=== PATIENT | female | born 1980 | race Caucasian/White ===

== ENCOUNTER 2022-07-30 08:19 | Emergency (ER) | payer BC ==
[~2022-07-30] VITALS: Ht 172.7 cm; Wt 86.2 kg
[~2022-07-30 08:19] MED LIST: SUMA25TA PO
[2022-07-30 08:22] VITALS: BP_SYST 147
--- NOTE | 2022-07-30 08:24 | NUR ---
Patient to ER bed 2 to gown for evaluation. Side rails up. Report given to Jenna BRIGGS.
--- NOTE | 2022-07-30 08:24 | NUR ---
Pt came in from home with significant other c/o severe Left Lower abd pain 8/. Pt states she has hx of fibroid tissue and cysts on ovaries. Pt states she is scheduled for hysterectomy this week but was unable to manage the pain on her own. Pt states she took tylenol at 0630. Denies fever/v/d. Pt is A&Ox4, calm and cooperative, VSS. Care to be provided as ordered.
--- NOTE | 2022-07-30 08:26 | NUR ---
ER at bedside examining patient.
[2022-07-30] MEDS ORDERED: HYDROcodone/ACETAMIN 10-325 MG TAB PO ONE (08:45)
[2022-07-30] MEDS ORDERED: IBUPROFEN 800 MG TABLET PO ONE (08:45)
[2022-07-30 09:32] LABS: BASOPHILS % (AUTO) 0.6 % (0.0-2.0); EOSINOPHILS # (AUTO) 0.1 K/uL (0.0-0.4); EOSINOPHILS % (AUTO) 1.8 % (0.0-4.0); HEMATOCRIT 34.1 % (36-48); HEMOGLOBIN 11.5 g/dL (12.0-16.0); LYMPHOCYTES # (AUTO) 1.6 K/uL (1.0-5.5); LYMPHOCYTES % (AUTO) 36.9 % (20.5-51.5); MEAN CORPUSCULAR HEMOGLOBIN 27 pg (27-31); MEAN CORPUSCULAR HGB CONC 34 % (32-36); MEAN CORPUSCULAR VOLUME 80 fL (79.0-98.0); MONOCYTES # (AUTO) 0.2 K/uL (0.0-1.0); MONOCYTES % (AUTO) 5.2 % (1.7-9.3); NEUTROPHILS # (AUTO) 2.5 K/uL (1.8-7.7); NEUTROPHILS % (AUTO) 55.5 % (40.0-70.0); PLATELET COUNT (AUTO) 307 K/uL (130-430); RED BLOOD CELL COUNT(AUTO) 4.26 MIL/uL (4.2-6.2); RED CELL DISTRIBUTION WIDTH 14.9 % (9.0-15.0); WHITE BLOOD COUNT (AUTO) 4.5 K/uL (4.8-10.8)
[2022-07-30 09:43] LABS: CALCIUM 8.4 mg/dL (8.4-11.0); CREATININE 0.72 mg/dL (0.55-1.30)
[2022-07-30 09:48] LABS: ALBUMIN 3.7 g/dL (3.4-4.8); C-REACTIVE PROTEIN QUANT 0.7 mg/dL (0-0.5); TOTAL BILIRUBIN 0.3 mg/dL (0.0-1.0)
[2022-07-30] MEDS ORDERED: HYDR-3917 PO (09:54)
[2022-07-30] MEDS ORDERED: MORPHINE 4 MG INJ. 4 MG/ML VIAL IM ONE (10:00)
--- NOTE | 2022-07-30 10:00 | NUR ---
Patient given written and verbal discharge instructions and verbalizes understanding. ER Dr. Keenan DIEHL discussed with patient the results and treatment provided. Patient in stable condition. ID arm band removed. IV catheter removed intact and dressing applied, no active bleeding. Rx of hydrocodone given. Patient educated on pain management and to follow up with PMD. Pain Scale 2/10. Opportunity for questions provided and answered. Medication side effect fact sheet provided.
== END 2022-07-30 10:53 | disposition home or self-care (01) ==
LOC: SED 08:19
DX: R10.2 Pelvic and perineal pain (principal)
CPT/HCPCS: 99284; 74176; 80053; 82150; 84703; 83690; 85025; 86140; 36415; 76376; 96372; J2270

== ENCOUNTER 2023-09-15 11:00 | Day surgery (SDC) | payer BC ==
[~2023-09-15] VITALS: Ht 172.7 cm; Wt 83.9 kg
[~2023-09-15 11:00] MED LIST changes: +HYDR-3917 PO
[2023-09-15 12:22] VITALS: O2SAT 98
[2023-09-15] MEDS ORDERED: ACETAMINOPHEN I.V. 1000 MG 100 ML IV ONE (13:08)
[2023-09-15] MEDS ORDERED: LIDOCAINE/EPI 1% 1:100000 20 ML VIAL ONE (16:40)
[2023-09-15] MEDS ORDERED: LR 1,000 ML IV.SOLN IV ONE (16:40)
[2023-09-15] MEDS ORDERED: ROCURONIUM BROMIDE 10 MG/ML (ZEMURON) ONE (16:40)
[2023-09-15] MEDS ORDERED: ONDANSETRON HCL 4 MG/2 ML VIAL ONE (16:40)
[2023-09-15] MEDS ORDERED: MIDAZOLAM HCL 5 MG/ML VIAL (VERSED) IV ONE (16:40)
[2023-09-15] MEDS ORDERED: WATER FOR IRRIGATION,STERILE 1,000 ML IRRIG.SOLN IR ONE (16:40)
[2023-09-15] MEDS ORDERED: DEXAMETHASONE SOD PHOSPHATE 4 MG/ML VIAL ONE (16:40)
[2023-09-15] MEDS ORDERED: NS IRRIG SOLN 1000 ML IR ONE (16:40)
[2023-09-15] MEDS ORDERED: SEVOFLURANE 15 MIN GAS INH ONE (16:40)
[2023-09-15] MEDS ORDERED: MUPIROCIN 2% TOPICAL OINTMENT 22 GM ONE (16:40)
[2023-09-15] MEDS ORDERED: PROPOFOL 200MG/ 20ML VIAL (DIPRIVAN) IV ONE (16:40)
[2023-09-15] MEDS ORDERED: NS 1000 ML IV.SOLN IV ONE (16:40)
[2023-09-15] MEDS ORDERED: HYDROmorphone 1 MG/ML INJ. CARTRIDGE IVP PRN (16:45)
[2023-09-15] MEDS ORDERED: ONDANSETRON HCL 4 MG/2 ML VIAL IVP PRN (16:45)
[2023-09-15] MEDS ORDERED: HYDROmorphone 1 MG/ML INJ. CARTRIDGE ONE (17:18)
[2023-09-15 19:34] VITALS: BP_SYST 116; PULSE 64; RESP 17
== END 2023-09-15 19:52 | disposition home or self-care (01) ==
LOC: SDS 11:00
PROVIDERS: ATTEND Otolaryngology
DX: D38.5 Neoplasm of uncertain behavior of other respiratory organs (principal); J34.2 Deviated nasal septum; J34.3 Hypertrophy of nasal turbinates; J30.1 Allergic rhinitis due to pollen; J34.89 Other specified disorders of nose and nasal sinuses; G47.63 Sleep related bruxism; G43.909 Migraine, unspecified, not intractable, without status migrainosus; Z79.899 Other long term (current) drug therapy
CPT/HCPCS: 31256; 88304; 88305; 88311; 30140; 30520; 31240; J1100; J2250; J2405; J2704; J1170; J7120; J7030; A4649; J0131